=== PATIENT | female | born 1975 | race Caucasian/White ===

== ENCOUNTER 2017-10-20 06:44 | Emergency (ER) | payer SELFPAY ==
[~2017-10-20] VITALS: Ht 160 cm; Wt 74.8 kg
[2017-10-20] MEDS ORDERED: LIDOCAINE HCL 1% LOCAL INJ 20 ML VIAL ONE (07:31)
[2017-10-20] MEDS ORDERED: TETANUS/DIPHTHERIA TOX ADULT 0.5 ML SYR ONE (07:31)
[2017-10-20] MEDS ORDERED: BACITRACIN ZINC 0.9GM TP ONE (07:54)
[2017-10-20] MEDS: DIPHTH/TETANUS/ACEL. PERTUSSIS 0.5 ML SYR IM ONE (07:57)
[2017-10-20 08:14] VITALS: BP 138/59
[2017-10-20] MEDS: BACITRACIN ZINC 0.9GM TP ONE (08:16)
[2017-10-20] MEDS: LIDOCAINE HCL 1% LOCAL INJ 20 ML VIAL INJ ONE (08:17)
== END 2017-10-20 08:35 | disposition home or self-care (01) ==
LOC: ER 06:44
DX: S61.212A Laceration without foreign body of right middle finger without damage to nail, initial encounter (principal); Z23 Encounter for immunization; W25.XXXA Contact with sharp glass, initial encounter; Y92.009 Unspecified place in unspecified non-institutional (private) residence as the place of occurrence of the external cause
CPT/HCPCS: 12001; 90714; 99284; J2001